=== PATIENT | male | born 1960 | race Two or more races ===

== ENCOUNTER 2018-11-03 05:23 | Inpatient (IN) | payer OTHER ==
[~2018-11-03] VITALS: Ht 167.6 cm; Wt 78.6 kg
[2018-11-03 05:30] VITALS: BP 114/79
--- NOTE | 2018-11-03 06:19 | NUR ---
RN MS OPENING NOTES ADMITTED PT FROM HOME FOR DAY SURGERY. AWAKE ALERT ORIENTEDX4, BREATHING EVEN AND UNLABORED ON ROOM AIR, NO COMPLAINT OF PAIN OR DISCOMFORT AT THIS TIME. IV ACCESS ON THE L AC 20G PATENT AND FLUSHING. BELONGINGS LIST COMPLETED, CONSENTS SIGNED, CHECKLIST COMPLETED. BED IN LOWEST LOCKED POSITION, CALL LIGHT WITHIN REACH AT ALL TIMES.
--- NOTE | 2018-11-03 06:53 | NUR ---
RN NOTES - ENDORSED TO DAY NURSE STEPH
[2018-11-03] MEDS ORDERED: SEVOFLURANE 250 ML BOTTLE IH ONE (06:56)
[2018-11-03] MEDS ORDERED: BACITRACIN 50000 UNITS/VIAL ONE (06:57)
[2018-11-03] MEDS ORDERED: ANESTHESIA TRAY IN PYXIS 1 EA TRAY MC ONE (06:57)
--- NOTE | 2018-11-03 07:00 | NUR ---
PATIENT PICKED UP BY OR STAFF. PATIENT IS STABLE AND ALERT AND ORIENTED X4
[2018-11-03] MEDS ORDERED: ROCURONIUM BROMIDE 50 MG/5 ML ONE (07:42)
[2018-11-03] MEDS ORDERED: HYDROMORPHONE INJ 2 MG/ML DISP.SYRIN ONE (07:42)
[2018-11-03] MEDS ORDERED: FENTANYL PF 100MCG/2ML AMPUL ONE (07:42)
[2018-11-03] MEDS ORDERED: MIDAZOLAM HCL 2 MG/2ML VIAL ONE (07:42)
[2018-11-03] MEDS ORDERED: TRANEXAMIC ACID 1,000 MG in IV NS 0.9% 100 ML IV SCH (09:00)
[2018-11-03] MEDS ORDERED: HEMOSTATIC MATRIX 10 ML 1 EACH PAD MC ONE (09:02)
[2018-11-03 12:35] VITALS: BP 132/84
--- NOTE | 2018-11-03 12:35 | NUR ---
RECEIVED PATIENT FROM OR. AWAKE A/OX4 , VS ARE STABLE ON ROOM AIR . AFEBRILE, NWB RUE. ORDERS PLACED. WILL CONTINUE TO MONITOR
[2018-11-03] MEDS ORDERED: oxyCODONE/APAP (5/325 MG) 1 UDTAB TABLET PO PRN (14:00)
[2018-11-03 16:00] VITALS: BP 109/71
[2018-11-03] MEDS: CEFAZOLIN 2 GM in IV D5W 50 ML IV SCH (16:16)
[2018-11-03] MEDS ORDERED: ATOR10TA PO (18:16)
--- NOTE | 2018-11-03 18:33 | NUR ---
Patient comfortably resting in bed. Breathing unlabored and even on room air.IV line intact and patent. All needs attended.Patient will be d/c tomorrow after 3rd dose Ancef. Safety precautions in place , call light within reach. Will endorse to next shift.
--- NOTE | 2018-11-03 19:31 | NUR ---
MS RN RECEIVE PT IN BED A/O X 3, STABLE, RESPIRATIONS EVEN AND UNLABORED, SAFETY MEASURES IN PLACE. WILL CONTINUE TO MONITOR.
[2018-11-03 20:00] VITALS: BP 109/60
--- NOTE | 2018-11-03 20:19 | NUR ---
Met with patient, came for an elective surgery today s/p right TSR. He lives at home with spouse, grandson and father in law. Prior to admission, he was ambulatory and independent with adl's.Denies having DME or homehealth. Has good family and friends support. Pcp is Dr.Alan Perez in [place]. Denies dc planning needs. His family will provide ride when discharge. Addendum: 11/03/18 at 2020 by SERGEY BUSCH RN Amended: Links added.
--- NOTE | 2018-11-03 21:59 | NUR ---
PAGEUrszula AND RELAYED HOSPITALIST C/O PT REQUESTING MAALOX FOR INDIGESTION. Addendum: 11/03/18 at 2201 by VIVIAN UMAÑA RN PER HOSPITALIST SPOKE TO DR. RYAN GIVE MAALOX SUSP UDC 30 ML Q6HR PO PRN READ BACK AND VERIFIED ORDERS NOTED AND CARRIED OUT.
[2018-11-03] MEDS ORDERED: MAG HYDROX/AL HYDROX/SIMETH 30 ML UDC PO PRN (22:00)
[2018-11-04] MEDS: CEFAZOLIN 2 GM in IV D5W 50 ML IV SCH ×2 (00:02→08:11)
[2018-11-04] MEDS: MORPHINE SULFATE INJ 4 MG/ML DISP.SYRIN IV PRN ×3 (01:24→10:11)
--- NOTE | 2018-11-04 06:16 | NUR ---
MS RN PT SLEPT WELL THROUGHOUT THE NIGHT. PAIN MEDICATED WITH PRN PAIN MEDICATION WITH RELIEF. KEPT CLEAN AND DRY AND COMFORTABLE. MAINTAINS NBW RUE. NEEDS ATTENDED AND ANTICIPATED. NURSING CARE RENDERED, SAFETY MEASURES AT ALL TIMES. ENDORSE TO THE NEXT SHIFT.
--- NOTE | 2018-11-04 07:30 | NUR ---
RN MS NOTES PT AWAKE, SITTING IN HIS CHAIR, ALERT AND ORIENTED, AMBULATES WITH STEADY GAIT, RIGHT SHOULDER IMMOBILIZER IN PLACE, WITH COMPLAINT OF PAIN AT RIGHT SHOULDER, NOT IN DISTRESS, CALL LIGHT WITHIN REACH.
[2018-11-04 08:00] VITALS: BP 108/60
--- NOTE | 2018-11-04 08:30 | NUR ---
RN MS NOTES PT STATED THAT HE IS HAVING PAIN WHEN HE IS WALKING BUT HE IS FINE WHEN SITTING, INFORMED PT THAT HE HAS AN ORDER FOR PERCOCET FOR BREAKTHROUGH PAIN, PT PREFERS TO WAIT FOR THE NEXT DOSE OF MORPHINE.
[2018-11-04] MEDS ORDERED: DOCU-141 PO (12:20)
--- NOTE | 2018-11-04 13:25 | NUR ---
RN MS NOTES PT AWAKE, SITTING IN BED, ALERT AND ORIENTED, NOT IN DISTRESS, PAIN MEDICATION GIVEN FOR PAIN MANAGEMENT, RIGHT SHOULDER IMMOBILIZER IN PLACE, SEEN BY RASHMI CHOI CUFF SETTER LOCKSTITCH, PLAN OF CARE DISCUSSED WITH PT, SEEN BY MIKE PIKE, DISCHARGE ORDER GIVEN BY DR. VARGAS, DISCHARGE AND MEDICATION INSTRUCTIONS PROVIDED TO PT, VERBALIZED UNDERSTANDING, BELONGINGS ACCOUNTED FOR, ASSISTED TO HOSPITAL LOBBY, LEFT WITH VIA PRIVATE CAR IN STABLE CONDITION.
== END 2018-11-04 13:15 | disposition home health service (06) | DRG 483 ==
LOC: DS 05:23 → MED 05:25
PROVIDERS: ADMIT Student in an Organized Health Care Education/Training Program; ATTEND Student in an Organized Health Care Education/Training Program
PROC: 0RRJ0JZ Replacement of Right Shoulder Joint with Synthetic Substitute, Open Approach (ICD-10-PCS; principal; 2018-11-03)
DX: M19.011 Primary osteoarthritis, right shoulder (principal); E78.5 Hyperlipidemia, unspecified
CPT/HCPCS: 36415; 73020; 82962-TC; 86850-TC; 87081-TC; G0378; J0690; J1100; J1170; J1200; J2250; J2270; J2405; J2704; J3010; J3490; J7030; J7050; J7060

== ENCOUNTER 2019-03-01 05:40 | Inpatient (IN) | payer OTHER ==
[~2019-03-01] VITALS: Ht 172.7 cm; Wt 70.8 kg
[~2019-03-01 05:40] MED LIST: ATOR10TA PO; DOCU-141 PO
[2019-03-01] MEDS ORDERED: MIDAZOLAM HCL 2 MG/2ML VIAL ONE (06:53)
[2019-03-01] MEDS ORDERED: FENTANYL PF 250MCG/5ML AMPUL ONE (06:54)
[2019-03-01] MEDS ORDERED: FENTANYL PF 100MCG/2ML AMPUL ONE (06:54)
[2019-03-01] MEDS ORDERED: FAMOTIDINE/PF INJ 20 MG/2 ML VIAL IV ONE (06:55)
[2019-03-01] MEDS ORDERED: BUPIVACAINE 0.25% 75 MG/30 ML VIAL ONE (06:55)
[2019-03-01] MEDS ORDERED: ANESTHESIA TRAY IN PYXIS 1 EA TRAY MC ONE (07:07)
[2019-03-01] MEDS ORDERED: BACITRACIN 50000 UNITS/VIAL ONE (07:14)
[2019-03-01] MEDS ORDERED: MEPERIDINE HCL/PF 100 MG/ML DISP.SYRIN ONE (07:23)
[2019-03-01] MEDS ORDERED: TRANEXAMIC ACID 3,000 MG in SODIUM CHLORIDE IRRIG SOLUTION 70 ML IR ONE (08:30)
[2019-03-01] MEDS ORDERED: BUPIVACAINE MPF 0.5% W/EPI INJ 30 ML VIAL ONE (08:59)
--- NOTE | 2019-03-01 10:20 | NUR ---
ms rn admitted a 58 year old male came from or/rr, s/p left shoulder surgery,awake,alerr,oriented x4,not in any form of distress, respirations even and unlabored,no sob noted, lungs are clear,abdomen soft,positive bowel sounds, denies pain at this time. sx site dressing intact, no s/s of bleeding noted, shoulder sling on repositioned for comfort,all needs attended.
--- NOTE | 2019-03-01 10:55 | NUR ---
ms barahona was seen by dr. piper devlin/ orders made and carried out.
[2019-03-01 10:58] VITALS: BP 116/69
[2019-03-01] MEDS ORDERED: oxyCODONE/APAP (5/325 MG) 1 UDTAB TABLET PO PRN (11:00)
--- NOTE | 2019-03-01 12:30 | NUR ---
ms rn lunch served,tolerated well, still denies pain at this time.
[2019-03-01] MEDS ORDERED: ASPI-1169 PO (15:13)
--- NOTE | 2019-03-01 15:49 | NUR ---
ms rn ms on bed, no distress noted..
[2019-03-01 15:54] VITALS: BP 125/70
[2019-03-01] MEDS: CEFAZOLIN 2 GM in IV D5W 100 ML IV SCH (17:25)
--- NOTE | 2019-03-01 19:30 | NUR ---
MS RN NOTE: PATIENT RESTING IN BED, NO ACUTE DISTRESS NOTED. BREATHING EVEN AND UNLABORED, NO SOB NOTED. IV TO RIGHT HAND IN PLACE. SLING TO LEFT ARM IN PLACE, WITH ICE PACKS. DRESSING TO LEFT SHOULDER IN PLACE, NO BLEEDING NOTED. BED LOCKED AND IN LOWEST POSITION, CALL LIGHT IN REACH. WILL CONTINUE TO MONITOR.
[2019-03-01 20:00] VITALS: BP 129/87
[2019-03-01] MEDS: oxyCODONE/APAP (5/325 MG) 1 UDTAB TABLET PO PRN (23:01)
--- NOTE | 2019-03-01 23:15 | NUR ---
MS RN NOTE: PATIENT COMPLAINS OF PAIN TO LEFT SHOULDER /10, PERCOCET 5/325MG 1 TAB ORAL GIVEN PER MD ORDER. WILL CONTINUE TO MONITOR.
[2019-03-02] MEDS: CEFAZOLIN 2 GM in IV D5W 100 ML IV SCH ×2 (00:17→08:10)
[2019-03-02] MEDS: oxyCODONE/APAP (5/325 MG) 1 UDTAB TABLET PO PRN ×2 (03:25→08:20)
[2019-03-02] MEDS: MORPHINE SULFATE INJ 4 MG/ML DISP.SYRIN IV PRN ×2 (06:15→11:25)
--- NOTE | 2019-03-02 06:20 | NUR ---
MS RN NOTE: PATIENT RESTING IN BED, NO ACUTE DISTRESS NOTED. BREATHING EVEN AND UNLABORED, NO SOB NOTED. IV TO RIGHT HAND IN PLACE. SLING TO LEFT ARM IN PLACE, WITH ICE PACKS. DRESSING TO LEFT SHOULDER IN PLACE, NO BLEEDING NOTED. PATIENT COMPLAINS OF PAIN SEVERE TO LEFT SHOULDER 11/23, MORPHINE 4MG IV GIVEN PER MD ORDER. BED LOCKED AND IN LOWEST POSITION, CALL LIGHT IN REACH. WILL ENDORSE TO DAY NURSE TO CONTINUE WITH PLAN OF CARE.
--- NOTE | 2019-03-02 07:34 | NUR ---
MS/RN Opening notes Patient received resting in bed, A/O x4, showing no signs of acute distress or SOB, saturating >95% on RA. S/P L shoulder reverse total shoulder arthroplasty and right shoulder manipulation 03/01/[address] Marroquin. IV line in the R wrist 18g is clean and patent. Bed is in lowest position, side rails x2 in upright position, call light is within reach and patient is aware of how to call for assistance when needed. Will continue with plan of care.
[2019-03-02 08:00] VITALS: BP 128/75
--- NOTE | 2019-03-02 09:00 | NUR ---
MS/RN note DC orders noted per Dr. Shafer. Requests patient to see Dr. Marie before DC to discuss pain management.
--- NOTE | 2019-03-02 10:00 | NUR ---
MS/RN note Dr. Marie notified about patient and stated he won't be able to see the patient until the evening. Patient stated he does not want to wait and that he is okay to go home without seeing Dr. Marie. Notified Dr. Marie.
--- NOTE | 2019-03-02 12:41 | NUR ---
MS/solar field service technician note Patient medically stable for discharge, A/O x4, showing no signs of acute distress or SOB. Vital signs WNL. DC instructions provided, patient verbalized understanding. IV removed, ID band removed. Skin is intact. Patient has all belongings with them and belonging list signed. Patient kept clean and dry and comfortable throughout the shift. Needs and concerns were addressed. MD is aware of discharge. Patient left the unit ambulatory with family and is leaving the hospital via private car.
== END 2019-03-02 13:00 | disposition home or self-care (01) | DRG 483 ==
LOC: DS 05:40 → MED 05:41
PROC: 0RRK00Z Replacement of Left Shoulder Joint with Reverse Ball and Socket Synthetic Substitute, Open Approach (ICD-10-PCS; principal; 2019-03-01)
DX: M19.012 Primary osteoarthritis, left shoulder (principal); M75.102 Unspecified rotator cuff tear or rupture of left shoulder, not specified as traumatic; E78.5 Hyperlipidemia, unspecified; K21.9 Gastro-esophageal reflux disease without esophagitis; M75.01 Adhesive capsulitis of right shoulder
CPT/HCPCS: 36415; 86850-TC; 87081-TC; 88305-TC; 88311-TC; A4217; A4565; A6209; C1776; G0378; J0690; J2175; J2250; J2270; J2550; J2704; J2710; J2765; J3010; J3490; J7050; J7060

== ENCOUNTER 2019-03-06 18:10 | Emergency (ER) | payer OTHER ==
[~2019-03-06] VITALS: Ht 167.6 cm; Wt 70.8 kg
[~2019-03-06 18:10] MED LIST changes: +ASPI-1169 PO; -DOCU-141 PO
--- NOTE | 2019-03-06 18:31 | NUR ---
CAME IN FOR L HAND SWELLING SINCE THIS MORNING. TO ER BED 1, HOOKED TO MONITOR, PROVIDED W WARM BLANKET, AWAITING MD WALSH
--- NOTE | 2019-03-06 18:38 | NUR ---
DR MICHAELS AT BEDSIDE
--- NOTE | 2019-03-06 19:30 | NUR ---
US TECH AT BEDSIDE
[2019-03-06 20:26] LABS: BASOPHILS % (AUTO) 0.5 % (0.0-2.0); HEMATOCRIT 40 % (39-51); HEMOGLOBIN 13.5 g/dL (13.5-17.5); LYMPHOCYTES # (AUTO) 1.2 /CMM (0.8-4.8); LYMPHOCYTES % (AUTO) 17.8 % (20.0-44.0); MEAN CORPUSCULAR HGB CONC 34 g/dl (31.0-36.0); MEAN CORPUSCULAR VOLUME 88 fL (80-96); MONOCYTES # (AUTO) 0.7 /CMM (0.1-1.30); MONOCYTES % (AUTO) 9.8 % (2.0-12.0); NEUTROPHILS # (AUTO) 4.6 /CMM (1.8-8.9); NEUTROPHILS % (AUTO) 66.9 % (43.0-81.0); PLATELET COUNT (AUTO) 284 /CMM (150-450); RED BLOOD CELL COUNT(AUTO) 4.54 MIL/uL (4.5-6.0)
[2019-03-06 20:35] LABS: CALCIUM, SERUM 8.7 mg/dL (8.5-10.1); CREATININE 0.7 mg/dL (0.6-1.3); POTASSIUM 3.7 mmol/L (3.5-5.1)
[2019-03-06 22:17] VITALS: BP 139/87
--- NOTE | 2019-03-06 22:17 | NUR ---
Patient discharged to home in stable condition. Written and verbal after care instructions given. Patient verbalizes understanding of instruction.
== END 2019-03-06 22:17 | disposition home or self-care (01) ==
LOC: ER 18:11
DX: I82.612 Acute embolism and thrombosis of superficial veins of left upper extremity (principal); E78.5 Hyperlipidemia, unspecified; K21.9 Gastro-esophageal reflux disease without esophagitis; Z98.890 Other specified postprocedural states; Z60.2 Problems related to living alone; Z79.82 Long term (current) use of aspirin; Z79.899 Other long term (current) drug therapy
CPT/HCPCS: 36415; 80048-TC; 85025-TC; 85730-TC; 93971-TC

== ENCOUNTER 2019-03-08 16:18 | Emergency (ER) | payer OTHER ==
[~2019-03-08] VITALS: Ht 167.6 cm; Wt 79.4 kg
--- NOTE | 2019-03-08 16:42 | NUR ---
PT AAOX4. AMBULATORTY. C/O WORSENING SWELLING TO LEFT ARM POST LEFT SHOULDER SX. PT WAS HERE THURSDAY. UPON ASSESSMENT PT ABLE TO CLENCH LEFT HAND HALF WAY. RR EVEN AND UNLABORED. PT ON MONITOR AND PULSE OX. PT STATED HE WAS HERE THURSDAY BECAUSE HE HAD SUPERFICIAL DVT L ARM. NO ACUTE DISTRESS NOTED.
--- NOTE | 2019-03-08 17:26 | NUR ---
US AT BEDSIDE
--- NOTE | 2019-03-08 18:03 | NUR ---
STUDY WAS DONE @[id number] CALLED CHELI [phone]... IT WILL BE READ SHORTLY.
--- NOTE | 2019-03-08 18:33 | NUR ---
PATIENT RESTING COMFORTABLY. VSS.
--- NOTE | 2019-03-08 19:03 | NUR ---
Patient discharged to home in stable condition. Written and verbal after care instructions given. Patient verbalizes understanding of instruction. PT ambulatory with a steady gait.
[2019-03-08 19:04] VITALS: BP 126/64
== END 2019-03-08 19:04 | disposition home or self-care (01) ==
LOC: ER 16:20
DX: I82.612 Acute embolism and thrombosis of superficial veins of left upper extremity (principal); E78.5 Hyperlipidemia, unspecified; K21.9 Gastro-esophageal reflux disease without esophagitis; Z98.890 Other specified postprocedural states; Z60.2 Problems related to living alone; Z79.82 Long term (current) use of aspirin; Z79.899 Other long term (current) drug therapy
CPT/HCPCS: 93971-TC